=== PATIENT | male | born 1960 | race Caucasian/White ===

== ENCOUNTER → 2020-12-17 10:19 | Outpatient (BNVA) | payer BC, SELFPAY | PROVIDERS: Visit Provider Nurse Practitioner Family | DX: R68.89 Other general symptoms and signs (principal); J32.9 Chronic sinusitis, unspecified | CPT/HCPCS: 87635 ==

== ENCOUNTER → 2021-10-21 15:26 | Outpatient (BNVA) | payer BC, SELFPAY | PROVIDERS: Visit Provider Emergency Medicine | DX: R39.9 Unspecified symptoms and signs involving the genitourinary system (principal); N30.01 Acute cystitis with hematuria | CPT/HCPCS: 81000 ==

== ENCOUNTER → 2022-02-25 09:56 | Outpatient (BNVA) | payer BC, SELFPAY | PROVIDERS: Visit Provider Emergency Medicine | DX: Z20.822 Contact with and (suspected) exposure to COVID-19 (principal); J00 Acute nasopharyngitis [common cold]; J22 Unspecified acute lower respiratory infection | CPT/HCPCS: 87400; 87426 ==

== ENCOUNTER 2022-05-29 13:25 | Emergency (ER) | payer BC, SELFPAY ==
[2022-05-29 14:12] VITALS: BP 149/89; PULSE 85; RESP 18; TEMP 36.6; O2SAT 96; BMI 34.4
[2022-05-29 15:09] VITALS: BP 145/89; PULSE 73; RESP 18; TEMP 37.1; O2SAT 97
--- NOTE | 2022-05-29 17:41 | CTR_ITS ---
PROCEDURE INFORMATION: Exam: CT Abdomen And Pelvis Without Contrast Exam date and time: 05/29/2022 7:00 PM Age: 61 years old Clinical indication: Abdominal pain; Localized; Patient HX: Right sided abd pain, difficulty breathing. HX prostate surgery in the past TECHNIQUE: Imaging protocol: Computed tomography of the abdomen and pelvis without contrast. Radiation optimization: All CT scans at this facility use at least one of these dose optimization techniques: automated exposure control; mA and/or kV adjustment per patient size (includes targeted exams where dose is matched to clinical indication); or iterative reconstruction. COMPARISON: CR XR chest 2V* [id number] 05/14/2022 2:57 PM RADIATION DOSE METRICS: Total DLP (mGy-cm): 991.31 FINDINGS: Lungs: Nonspecific bibasilar streaky opacity is present, consistent with atelectasis, scarring, edema, or pneumonia. Liver: See Stomach and bowel finding. Gallbladder and bile ducts: This is separate from the gallbladder and most closely associated with the colon. Pancreas: The pancreas is normal. Spleen: The spleen is normal. Adrenal glands: The adrenal glands are normal. Kidneys and ureters: There is no evidence of hydronephrosis. Stomach and bowel: There is no evidence of intestinal perforation or obstruction. There is moderately excessive colonic stool content. In the right upper quadrant adjacent to the hepatic flexure of the colon, there is induration of the mesenteric fat that extends adjacent to the tip of the liver. Coronal images do demonstrate the haziness to be surrounding a collection of fat on the anti mesenteric side of the colon series 5, image 23 and series 3, image 41 compatible with probable appendagitis epiploica of the hepatic flexure. No wall thickening of the colon or definite colitis. No diverticulosis or definite diverticulitis. Appendix: A normal appendix is identified. Intraperitoneal space: No fluid collection, free air or abscess. Vasculature: The aorta is normal. Lymph nodes: Unremarkable.No enlarged lymph nodes. Urinary bladder: The bladder is normal. Reproductive: Unremarkable as visualized. Bones/joints: Moderate diffuse degenerative changes. No acute fracture. Multiple vacuum discs. Moderate to severe stenosis at L3-L4, L4-L5 and especially L5-S1 due to disc bulges and facet hypertrophy. Vacuum disc at L5-S1 is migrating posteriorly be hiding the S1 vertebral body. Soft tissues: There is a nonobstructing left inguinal hernia. There is a fat-containing umbilical hernia. CT/CT abdomen pelvis wo con [id number] IMPRESSION: 1. Prominent induration of the mesenteric fat right upper quadrant closely associated with the anti mesenteric side of the hepatic flexure of the colon with small central area of non indurated fat compatible with appendagitis epiploica. No wall thickening of the colon or colitis. This is separate from the gallbladder and gallbladder fossa. 2. Nonspecific bibasilar streaky opacity is present, consistent with atelectasis, scarring, edema, or pneumonia.
[2022-05-29 17:48] VITALS: TEMP 36.9
[2022-05-29 17:55] VITALS: BP 147/89; PULSE 77; RESP 18; TEMP 36.6; O2SAT 98
[2022-05-29 17:55] LABS: Basophils # 0.1 10^3/uL (0.0-0.1); Basophils % 0.7 %; Eosinophils # 0.3 10^3/uL (0.0-0.8); Eosinophils % 2.2 %; Hematocrit 42.5 % (42.0-52.0); Hemoglobin 13.5 g/dL (11.7-16.6); Lymphocytes # 2.1 10^3/uL (0.8-4.8); Lymphocytes % 18.8 %; Mean Corpuscular HGB Conc 31.8 g/dL (30.0-36.0); Mean Corpuscular Hemoglobin 27.7 pg (28.0-34.0); Mean Corpuscular Volume 87.1 fl (80-94); Mean Platelet Volume 10.9 fL (7.4-10.4); Monocytes # 0.8 10^3/uL (0.2-0.9); Monocytes % 7.5 %; Neutrophils # 7.93 10^3/uL (1.8-7.7); Neutrophils % 70.4 %; Nucleated Red Blood Cells % 0 %; Platelet Count 233 10^3/cmm (130-400); Red Blood Count 4.88 10^6/uL (4.1-5.3); Red Cell Distribution Width 13.7 % (12.1-15.1); White Blood Count 11.3 10^3/uL (4.0-10.0)
[2022-05-29 18:34] LABS: Alanine Aminotransferase 17 U/L (0-41); Albumin Level 4.3 g/dL (3.5-5.2); Alkaline Phosphatase 82 U/L (40-130); Anion Gap 14.8 (5-19); Aspartate Amino Transferase 15 U/L (0-40); Blood Urea Nitrogen 18 mg/dL (8-23); Calcium 9.7 mg/dL (8.5-10.5); Carbon Dioxide 23 mmol/L (22-29); Chloride 104 mmol/L (98-107); Globulin 3.1 g/dL (1.3-4.6); Glomerular Filtration Rate 85.2 mL/min (90-130); Glucose 83 mg/dL (65-115); Lipase 31 U/L (13-60); Osmolality Calculated 287 mOsm/kg (285-295); Potassium 3.8 mmol/L (3.5-5.1); Sodium 138 mmol/L (136-145); Total Bilirubin 0.4 mg/dL (0.15-1.2); Total Protein 7.4 g/dL (6.6-8.7)
[2022-05-29 19:50] VITALS: BP 157/92; PULSE 91; RESP 18; O2SAT 97
--- NOTE | 2022-05-29 20:03 | W.ED.ABDPA2 ---
HPI - Abdominal Pain General: Chief Complaint: Abdominal Pain Stated Complaint: pain in right side Time Seen by Provider: 05/29/22 19:49 Source: patient Mode of arrival: ambulatory Limitations: no limitations History of Present Illness: 61-year-old male states he been having right-sided abdominal pain over the last 2 days he states been a sharp pain much worse with movement and palpation he denies any fever denies any vomiting or diarrhea. Denies any radiation of his pain. He rates his pain a 6 out of 10 currently. Associated Symptoms: Denies chills, dysuria and fever(s) Review of Systems Const: Denies: fever(s), chills, body aches or change in appetite Eyes: Denies: blurry vision or eye discomfort ENMT: Denies: throat pain or dental pain Card: Denies: chest pain Resp: Denies: dyspnea GI: Reports: abdominal pain : Denies: dysuria Musc: Denies: neck pain or back pain Skin/Breast: Denies: rash Neuro: Denies: headache(s) Psych: Denies: depression Nael/Lymph: Denies: easy bruising All/Imm: Denies: urticaria PFSH ED PFSH: Surgical History (Updated 05/29/22 @ 20:06 by Erica Schuster MD) History of prostate surgery Family History Denies family history of Diabetes Clotting disorder Dementia Hyperlipidemia Hypertension Social History Smoking and tobacco status: never smoked Alcohol intake: never Adopted: No Physical Exam Const: COMMON NORMALS: no acute distress, patient oriented x3 and healthy appearing HENMT: COMMON NORMALS: normocephalic and atraumatic HEAD & SCALP: normocephalic and atraumatic Eye: COMMON NORMALS: Equal, round and reactive pupils present and EOMs intact bilaterally PUPIL: Yes Equal, round and reactive pupils present Neck/C-Spine: COMMON NORMALS: full ROM and supple Chest: COMMONS NORMALS: normal inspection of the chest and normal palpation of entire chest wall Resp: COMMON NORMALS: normal respiratory effort, No retractions, No use of accessory muscles and clear to auscultation bilaterally AUSCULTATION: clear to auscultation bilaterally Cardio: COMMON NORMALS: regular rate, regular rhythm and No murmurs present (Cardio) RATE: regular rate RHYTHM: regular rhythm GI: COMMON NORMALS: Normal to inspection, nondistended, normoactive bowel sounds present, Soft to palpation and no masses PALPATION: Yes Soft to palpation OTHER: right sided tenderness Extremity: COMMON NORMALS: normal to inspection and full ROM Neuro: COMMON NORMALS: patient oriented x3, moves all extremities and no focal motor deficits Psych: COMMON NORMALS: mental status grossly normal, Normal thought process present and cooperative THOUGHT PROCESS: Normal thought process present Skin: COMMON NORMALS: no rashes or lesions noted and no wounds GENERAL SKIN EXAM: no rashes or lesions noted Course Vital Signs: Vital signs: Vital Signs Temperature 97.9 F 05/29/22 17:55 Pulse Rate 91 05/29/22 19:50 Respiratory Rate 18 05/29/22 19:50 Blood Pressure 157/92 05/29/22 19:50 Pulse Oximetry 97 05/29/22 19:50 Oxygen Delivery Me thod 05/29/22 19:50 MDM - Abdominal Pain Medical Decision Making Patient presents here with abdominal pain CT shows epiploic appendagitis no signs of any serious infection he is otherwise well-appearing here blood work is normal we will get him pain control write him [facility] for home he is to follow-up with PCP and return if worsening. Lab Data 05/29/22 17:49 05/29/22 17:49 Labs/Radiology: Radiology Impressions Abdomen/Pelvis CT 05/29/22 17:41 IMPRESSION: 1. Prominent induration of the mesenteric fat right upper quadrant closely associated with the anti mesenteric side of the hepatic flexure of the colon with small central area of non indurated fat compatible with appendagitis epiploica. No wall thickening of the colon or colitis. This is separate from the gallbladder and gallbladder fossa. 2. Nonspecific bibasilar streaky opacity is present, consistent with atelectasis, scarring, edema, or pneumonia. Laboratory Results WBC 11.3 10^3/uL (4.0-10.0) H 05/29/22 17:49 RBC 4.88 10^6/uL (4.1-5.3) 05/29/22 17:49 Hgb 13.5 g/dL (11.7-16.6) 05/29/22 17:49 Hct 42.5 % (42.0-52.0) 05/29/22 17:49 MCV 87.1 fl (80-94) 05/29/22 17:49 MCH 27.7 pg (28.0-34.0) L 05/29/22 17:49 MCHC 31.8 g/dL (30.0-36.0) 05/29/22 17:49 RDW 13.7 % (12.1-15.1) 05/29/22 17:49 Plt Count 233 10^3/cmm (130-400) 05/29/22 17:49 MPV 10.9 fL (7.4-10.4) H 05/29/22 17:49 Neut % (Auto) 70.4 % 05/29/22 17:49 Lymph % (Auto) 18.8 % 05/29/22 17:49 Millard % (Auto) 7.5 % 05/29/22 17:49 Eos % (Auto) 2.2 % 05/29/22 17:49 Baso % (Auto) 0.7 % 05/29/22 17:49 Neut # (Auto) 7.93 10^3/uL (1.8-7.7) H 05/29/22 17:49 Lymph # (Auto) 2.1 10^3/uL (0.8-4.8) 05/29/22 17:49 Millard # (Auto) 0.8 10^3/uL (0.2-0.9) 05/29/22 17:49 Eos # (Auto) 0.3 10^3/uL (0.0-0.8) 05/29/22 17:49 Baso # (Auto) 0.1 10^3/uL (0.0-0.1) 05/29/22 17:49 Nucleated RBC % (auto) 0 % 05/29/22 17:49 Nucleated RBCs # 0.0 /100WBC 05/29/22 17:49 Sodium 138 mmol/L (136-145) 05/29/22 17:49 Potassium 3.8 mmol/L (3.5-5.1) 05/29/22 17:49 Chloride 104 mmol/L (98-107) 05/29/22 17:49 Carbon Dioxide 23 mmol/L (22-29) 05/29/22 17:49 Anion Gap 14.8 (5-19) 05/29/22 17:49 BUN 18 mg/dL (8-23) 05/29/22 17:49 Creatinine 0.9 mg/dL (0.7-1.2) 05/29/22 17:49 GFR Calculation 85.2 mL/min (90-130) L 05/29/22 17:49 Glucose 83 mg/dL (65-115) 05/29/22 17:49 Calculated Osmolality 287 mOsm/kg (285-295) 05/29/22 17:49 Calcium 9.7 mg/dL (8.5-10.5) 05/29/22 17:49 Total Bilirubin 0.4 mg/dL (0.15-1.2) 05/29/22 17:49 AST 15 U/L (0-40) 05/29/22 17:49 ALT 17 U/L (0-41) 05/29/22 17:49 Alkaline Phosphatase 82 U/L (40-130) 05/29/22 17:49 Total Protein 7.4 g/dL (6.6-8.7) 05/29/22 17:49 Albumin 4.3 g/dL (3.5-5.2) 05/29/22 17:49 Globulin 3.1 g/dL (1.3-4.6) 05/29/22 17:49 Lipase 31 U/L (13-60) 05/29/22 17:49 Discharge Plan Discharge Patient Disposition: Home Clinical Impression: Epiploic appendagitis Condition: Stable Prescriptions: New hydrocodone-acetaminophen 5-325 mg tablet 1 tab PO Q6H PRN (Reason: pain) Qty: 14 0RF ondansetron 4 mg tablet,disintegrating 4 mg PO Q6H PRN (Reason: nausea and vomiting) Qty: 14 0RF No Action acetaminophen [Tylenol] 325 mg capsule 325 mg PO QID PRN ibuprofen 200 mg capsule 200 mg PO Q6H PRN albuterol sulfate 90 mcg/actuation HFA aerosol inhaler 2 puff inhalation Q6H PRN (Reason: shortness of breath or wheezing) Qty: 8.5 0RF Discharge Orders: Discharge ED (Routine); Ordered 05/29/22 Ordered By: Erica Schuster Discharge Diet: Advance as tolerated Discharge Activity: Resume usual activity Patient Instructions: Epiploic Appendagitis (ED), Opioid Safety, Pain Management Coding Level of Care Code ED [facility] for [facility]
== END 2022-05-29 20:24 | disposition home or self-care (01) ==
PROVIDERS: Family Medicine; Emergency Provider Emergency Medicine
DX: K63.89 Other specified diseases of intestine (principal)
CPT/HCPCS: 74176; 80053; 81000; 83690; 85025; 99284

== ENCOUNTER → 2022-12-10 15:22 | Outpatient (BNVA) | payer BC, SELFPAY | PROVIDERS: Visit Provider Emergency Medicine | DX: M25.552 Pain in left hip (principal); G89.29 Other chronic pain | CPT/HCPCS: 73502 ==